=== PATIENT | female | born 1970 | race Caucasian/White ===

== ENCOUNTER 2022-09-03 11:34 | Emergency (ER) | payer MEDICARE, OTHER, SELFPAY ==
--- NOTE | ~2022-09-03 | CT_ITS ---
EXAMINATION: CT abdomen pelvis w con DATE: 09/03/2022 13:27 INDICATION: Worsening diverticulitis TECHNIQUE: Computed tomography (CT) of the abdomen and pelvis was performed with 100 CC Omnipaque 350 intravenous contrast. Automated exposure control and iterative reconstruction technique were employe d. Exam dose: 416.85 mGy-cm total exam DLP. COMPARISON: 08/19/2011 CT abdomen pelvis FINDINGS: There is lower lobe calcified pulmonary granulomatous disease. The lung bases are clear of infiltrate or consolidation. Normal heart size. No pericardial or pleural effusion. Status post cholecystectomy. The liver, spleen, pancreas, adrenal glands and kidneys are unremarkable . No urinary tract calculus or hydroureteronephrosis. Normal caliber of the abdominal aorta. No intraperitoneal or retroperitoneal or pelvic mass lesion or adenopathy or ascites. Status post appendectomy. There are numerous diverticula of the left colon. There is focal mild peric olic soft tissue stranding Junction of the descending and sigmoid colon in the left lower quadrant consistent with mild localize d diverticulitis. No abscess is identified. Again noted is chronic low density lymphadenopathy in the small bowel mesentery, not significant lacey ge since 08/19/2011. Included skeletal structures are unremarkable. There is a subcutaneous generator device in the right lower back with leads extending into the exhaust and muffler fitter ior thoracic spinal canal. IMPRESSION: Mild localized diverticulitis, left lower quadrant Reviewed, dictated and finalized at [facility]. Reviewed, dictated and finalized at [facility].
[2022-09-03 11:40] VITALS: BP 107/85; PULSE 135; RESP 20; TEMP 36.4; O2SAT 100
--- NOTE | 2022-09-03 12:10 | ED.ABDPAIN ---
HPI - Abdominal Pain General Chief Complaint: Abdominal Pain Stated Complaint: abd pain, dx. diverticulitus Time Seen by Provider: 09/03/22 11:54 History of Present Illness HPI narrative: 51-year-old female with history of diverticulitis presented the emergency department for evaluation of worsening left lower quadrant and suprapubic abdominal pain. Patient was evaluated at [facility] by her primary care physician and had a CT scan on the that did confirm diverticulitis. Patient was started on Cipro Flagyl. Patient states that she has had worsening symptoms so she presented to the ED for further work-up. Patient states she has had previous missed diagnoses at [facility] and she was anxious about her diagnoses so she presented to our ED for reevaluation and further work-up. Patient is complaining abdominal pain nausea. Patient states he has had decreased p.o. intake and has not been passing stool. Related Data Allergies Allergy/AdvReac Type Severity Reaction Status Date / Time fentanyl Allergy Mild Rash Verified 02/15/17 03:58 lamotrigine Allergy Mild Verified 02/15/17 03:58 Penicillins Allergy Mild Rash Verified 02/15/17 03:58 lurasidone Allergy Unknown Verified 02/15/17 03:58 [place] Allergy Unknown RASH Uncoded 02/15/17 03:58 Review of Systems Review of Systems: All systems reviewed & are unremarkable except as noted in HPI and below Exam Narrative: APPEARANCE: Tearful and uncomfortable HEAD: normocephalic, atraumatic. EYES: PERRLA/EOMI, conjunctivae clear. NOSE: Normal no drainage EARS:TMS clear with good light reflex. THROAT: Pharynx clear, no exudate. NECK: Supple. No adenopathy, no masses. RESPIRATORY: Airway patent, respirations nonlabored. Clear to auscultation bilaterally, no rales, rhonchi, wheezing. CARDIOVASCULAR: Regular rate and rhythm without murmurs rubs or gallops. ABDOMINAL: Suprapubic and left lower quadrant tenderness to palpation MUSCULOSKELETAL: Moves all extremities. Strength/ROM intact, No edema, No calf tenderness. NEURO: Alert. Cranial nerves II through XII intact. Grossly intact SKIN: Warm, dry. Normal Color Course Course Emergency Course: 51-year-old female presented ED for evaluation of worsening diverticulitis. Patient was treated with IV fluid, IV Zofran and IV Dilaudid for pain control. CT scan was ordered for evaluation of worsening symptoms and to rule out perforation or abscess. Patient and family were updated on the plan for evaluation and further work-up. Patient was afebrile with no leukocytosis and a stable hemoglobin. Patient has no elevated lactic acid and patient's CMP is generally within normal limits. Patient's CT does show some mild diverticulitis without evidence of abscess or perforation. Patient does have Percocet at home for pain control. Patient reports she will have follow-up with gastro. Patient and family were updated on the results of the work-up and imaging and patient states she does feel comfortable with the plan for discharge and follow-up Vital Signs Vital signs: Vital Signs Temperature 97.6 F 09/03/22 11:40 Pulse Rate 135 H 09/03/22 11:40 Respiratory Rate 20 09/03/22 11:40 Blood Pressure 107/85 09/03/22 11:40 Pulse Oximetry 100 09/03/22 11:40 Oxygen Delivery Room Air 09/03/22 11:40 Temperature 97.6 F 09/03/22 11:40 Pulse Rate 90 09/03/22 13:59 Respiratory Rate 16 09/03/22 13:59 Blood Pressure 121/66 09/03/22 13:59 Pulse Oximetry 99 09/03/22 13:59 Oxygen Delivery Room Air 09/03/22 11:40 MDM - Abdominal Pain Differential Diagnosis Differential diagnosis: Likely abdominal pain, constipation, diverticulitis, gastroenteritis and small bowel obstruction Lab Data Attestation: I reviewed the patient's lab results. 09/03/22 12:05 09/03/22 12:04 Labs: Lab Results 09/03/22 09/03/22 09/03/22 Range/Units 12:04 12:05 13:09 WBC 6.7 (4.5-10.0) K/mm3 RBC 4.56 (4.2-5.4)
[2022-09-03 12:11] LABS: Basophils Percent Auto 0.1 % (0.2-1.2); Eosinophils Absolute Auto 0.1 K/mm3 (0-0.3); Eosinophils Percent Auto 0.7 % (0-4.4); Hematocrit 39.7 % (37.0-47.0); Hemoglobin 14.2 g/dL (12.0-15.0); Immature Granulocyte Absolute 0.01 K/mm3 (0.00-0.031); Immature Granulocyte Percent A 0.1 % (0-0.5); Lymphocytes Absolute Auto 1.34 K/mm3 (0.9-3.2); Lymphocytes Percent Auto 19.9 % (18.3-44.2); Mean Corpuscular HGB Conc 35.8 g/dl (32-36); Mean Corpuscular Hemoglobin 31.1 pg (26-34); Mean Corpuscular Volume 87.1 fl (80-100); Mean Platelet Volume 9.4 fl (7.4-10.4); Monocytes Absolute Auto 0.5 K/mm3 (0.1-0.6); Monocytes Percent Auto 6.8 % (2.6-8.5); Neutrophils Absolute Auto 4.9 K/mm3 (1.3-6.7); Neutrophils Percent Auto 72.4 % (45.5-73.1); Platelet Count Result 190 k/mm3 (150-375); Red Blood Count 4.56 M/mm3 (4.2-5.4); Red Cell Distribution Width 11.7 % (11.5-14.5); White Blood Count 6.7 K/mm3 (4.5-10.0)
[2022-09-03] MEDS: HYDROmorphone HCL INJ (*CRX) 1 MG/ML SYR 0.5 MG IV PUSH (12:18)
[2022-09-03] MEDS: SODIUM CHLORIDE 0.9% IV 1,000 ML 999 ML IV CONT (12:18)
[2022-09-03] MEDS: ONDANSETRON INJ 4 MG/2 ML VIAL IV PUSH (12:18)
[2022-09-03 12:20] LABS: Lactic Acid Reflex 1.2 mmol/L (0.7-2.0)
[2022-09-03 12:21] LABS: Alanine Aminotransferase 88 U/L (6-35); Albumin Level 4.6 g/dL (3.5-5.1); Alkaline Phosphatase 116 U/L (38-126); Anion Gap 11 mmol/L (8-16); Aspartate Amino Transferase 51 U/L (14-36); Bilirubin,Total 0.5 mg/dL (0.2-1.3); Blood Urea Nitrogen 11 mg/dL (7-17); Carbon Dioxide 25 mmol/L (22-30); Chloride 103 mmol/L (98-107); Estimated Glomerular Filt Rate > 60; Glucose 122 mg/dL (65-110); Lipase 51 U/L (23-300); Potassium 3.5 mmol/L (3.4-5.0); Sodium 139 mmol/L (137-145)
[2022-09-03] MEDS: HYDROmorphone HCL INJ (*CRX) 1 MG/ML SYR IV PUSH (13:42)
[2022-09-03 13:57] LABS: Appearance Urine Clear (Clear); Bacteria Urine None Seen /hpf; Bilirubin Urine Negative (Negative); Blood Urine Negative (Negative); Color Urine Yellow (Yellow); Glucose Urine UA Negative (Negative); Hyaline Casts Urine Present /lpf; Ketones Urine Negative (Negative); Leukocyte Esterase Ur 2+ LEU/UL (Negative); Need Manual Microscopic Reviewed; Nitrate Urine Negative (Negative); Protein Urine Negative (Negative); RBC Urine 0-2 /hpf (0-2); Specific Grav Ur 1.007 (1.001-1.035); Squamous Epithelial Cell Urine Few /hpf (Few); Urobilinogen Urine 0.2 mg/dL (<2.0); WBC Urine 0-5 /hpf
[2022-09-03 13:58] LABS: Add Urine Microscopic? YES
[2022-09-03 13:59] VITALS: BP 121/66; PULSE 90; RESP 16; O2SAT 99
== END 2022-09-03 14:00 | disposition home or self-care (01) ==
PROVIDERS: Emergency Provider Emergency Medicine
DX: K57.32 Diverticulitis of large intestine without perforation or abscess without bleeding (principal)
CPT/HCPCS: 36415; 74177; 80053; 81001; 83605; 83690; 85025; 96361; 96374; 96375; 96376; 99284; J1170; J2405; J7030; Q9967